=== PATIENT | male | born 1955 | race Caucasian/White ===

== ENCOUNTER → 2017-07-19 10:30 | Outpatient (CLI) | payer OTHER, SELFPAY ==
--- NOTE | 2017-07-19 13:23 | STRESSREP ---
Stress Test Report Date: 07/19/2017 Procedure: Exercise tolerance test Indications: Aortic valve disorder/stenosis Consent: Per the patient Procedure: The patient exercised on a Virgilio protocol for 4 minutes completing stage I and I minute of stage II achieving a peak heart rate of 118 bpm (73% predicted maximal heart rate) with a peak blood pressure of 120/90 mmHg and a peak MET capacity of approximately 5-6 MET's. The baseline ECG demonstrated underlying normal sinus rhythm. The peak exercise ECG demonstrated no obvious ECG changes. The recovery ECG demonstrated approximately 1-2 mm of downsloping/horizontal ST segment depression in leads I, II, aVL, and V2 through V6 with gradual resolution towards baseline in recovery. There was a rare PVC during exercise recovery. The functional capacity was considered decreased. The patient noted no chest discomfort at peak exercise. The examination was discontinued secondary to dyspnea. Interpretation: 1. Technically inadequate (percent predicted maximal heart rate less than 85%) exercise tolerance test 2. Peak exercise ECG demonstrating no obvious ECG changes, however, the recovery ECG demonstrated approximately 1-2 mm of downsloping/horizontal ST segment depression in leads I, II, aVL, and V2 through V6 with gradual resolution towards baseline in recovery 3. Rare PVC during exercise and recovery This note was generated with [employer] software. Every effort was made to ensure accuracy, however, computerized stone hand mistakes may persist.
--- NOTE | 2017-07-19 13:28 | STRESSREP_ITS ---
Stress Test Report Date: 07/19/2017 Procedure: Exercise tolerance test Indications: Aortic valve disorder/stenosis Consent: Per the patient Procedure: The patient exercised on a Virgilio protocol for 4 minutes completing stage I and I minute of stage II achieving a peak heart rate of 118 bpm (73% predicted maximal heart rate) with a peak blood pressure of 120/90 mmHg and a peak MET capacity of approximately 5-6 MET's. The baseline ECG demonstrated underlying normal sinus rhythm. The peak exercise ECG demonstrated no obvious ECG changes. The recovery ECG demonstrated approximately 1-2 mm of downsloping/horizontal ST segment depression in leads I, II, aVL, and V2 through V6 with gradual resolution towards baseline in recovery. There was a rare PVC during exercise recovery. The functional capacity was considered decreased. The patient noted no chest discomfort at peak exercise. The examination was discontinued secondary to dyspnea. Interpretation: 1. Technically inadequate (percent predicted maximal heart rate less than 85%) exercise tolerance test 2. Peak exercise ECG demonstrating no obvious ECG changes, however, the recovery ECG demonstrated approximately 1-2 mm of downsloping/horizontal ST segment depression in leads I, II, aVL, and V2 through V6 with gradual resolution towards baseline in recovery 3. Rare PVC during exercise and recovery This note was generated with [email or web address] software. Every effort was made to ensure accuracy, however, computerized tipple oiler mistakes may persist.
== END ==
PROVIDERS: Family Provider Family Medicine; PCP Family Medicine; Visit Provider Internal Medicine Cardiovascular Disease
DX: I35.0 Nonrheumatic aortic (valve) stenosis (principal)
CPT/HCPCS: 93017

== ENCOUNTER → 2017-08-02 07:28 | Day surgery (SDC) | payer OTHER, SELFPAY ==
--- NOTE | 2017-07-26 09:55 | RAD_ITS ---
STUDY: X-RAY CHEST REASON FOR EXAM: Male, 62 years old. Precath TECHNIQUE: Frontal and lateral views of the chest. COMPARISON: None. FINDINGS: The lungs are clear and expanded. There is no demonstrated pleural abnormality. Normal size heart. Normal mediastinum and misha. Normal visualized pulmonary arteries. Normal visualized aortic arch and descending thoracic aorta. Normal visualized thoracic spine. Normal visualized ribs, clavicles, and shoulders. There is no demonstrated abnormality of the visualized soft tissue structures of the upper abdomen. RAD/Chest PA and Lateral IMPRESSION: Normal x-ray examination of the chest. Electronically Signed: Gabriel Ndiaye MD at 17:22 EST , Service support ,
[2017-07-26 10:18] LABS: Hematocrit 40.6 % (40-54); Hemoglobin 14.6 g/dl (13.0-16.5); International Normalized Ratio 1.1; Mean Corpuscular Hgb 31.9 pg (27.0-32.0); Mean Corpuscular Volume 88.8 fL (80-94); Mean Platelet Vol. 10.1 fl (6.2-12.0); Platelet Count 230 K/mm3 (150-450); Prothrombin Time (Protime)PT. 13.3 SECONDS (11.7-14.9); RBC Distribution Width CV 13.6 % (11.6-14.6); RBC Distribution Width SD 42.9 fl (35.1-43.9); Red Blood Count 4.57 M/mm3 (4.6-6.2); White Blood Count 10.9 K/mm3 (4.4-11.0)
[2017-07-26 10:19] LABS: Partial Thromboplast Time 29.8 Seconds (24.1-36.2)
[2017-07-26 10:20] LABS: Scan Indicated on CBC? Y/N NO
[2017-07-26 10:37] LABS: Anion Gap 5 (5-15); BUN 19 mg/dL (7-18); BUN/Creat Ratio 11.7 RATIO (10-20); Calcium,Total 9.8 mg/dL (8.5-10.1); Chloride 98 mmol/L (98-107); Creatinine, Serum 1.62 mg/dL (0.70-1.30); EST Glomerular Filtration Rate 46 mL/min (>60); Est Glom Filt Rate - Afr Amer 56 mL/min (>60); Glucose 243 mg/dL (74-106); Potassium 3.6 mmol/L (3.5-5.1); Sodium Level 136 mmol/L (136-145)
[2017-08-01 12:04] VITALS: BMI 34.0
[2017-08-02 11:41] LABS: Blood Gas Specimen Type VEN; VBG BASE EXCESS 3 mmol/L (-1.0-3.5); VBG Bicarbonate 27 mmol/L (22-26); VBG Oxygen Content 28 mmol/L (23-33); VBG PO2 42 mmHg (25-40); VBG SO2 79 % (50-70); VBG pCO2 39.5 mmHg (41-51); VBG pH 7.44 (7.32-7.42)
[2017-08-02 11:41] LABS: Blood Gas Specimen Type VEN; VBG BASE EXCESS 1 mmol/L (-1.0-3.5); VBG Bicarbonate 26 mmol/L (22-26); VBG Oxygen Content 27 mmol/L (23-33); VBG PO2 37 mmHg (25-40); VBG SO2 73 % (50-70); VBG pCO2 38.6 mmHg (41-51); VBG pH 7.43 (7.32-7.42)
[2017-08-02 11:41] LABS: Blood Gas Specimen Type VEN; VBG BASE EXCESS 2 mmol/L (-1.0-3.5); VBG Bicarbonate 26 mmol/L (22-26); VBG Oxygen Content 27 mmol/L (23-33); VBG PO2 36 mmHg (25-40); VBG SO2 70 % (50-70); VBG pCO2 40.4 mmHg (41-51); VBG pH 7.42 (7.32-7.42)
--- NOTE | 2017-08-02 21:01 | CL.D_ITS ---
Patient Name: CATALINA TAO Study Date: 08/02/2017 Performing: Brad Chávez MD Ht: 69 inches 175 cm : 1955 Wt: 229.6 lbs 104 kg Age: 62 Gender: male BSA: 2.19 PROCEDURE(S) PERFORMED [id number]/LHC/COR/LV CLINICAL PROFILE AND INDICATIONS INDICATIONS: Valvular heart disease, Aortic valve stenosis, Abnormal cardiac stress test Stress/Imaging Standard Exercise Stress Test: Yes Result: Positive Angina Classification Anginal Classification w/in 2 Weeks: No symptoms CAD Presentations: No Sxs, no angina. CONCLUSIONS Elevated Left Ventricular End Diastolic Pressure Right heart pressures - mildly elevated The patient has pulmonary hypertension which is mild. Intracardiac shunting: None Normal LV size, wall motion,and systolic function LVEF: by LV gram 65 % Single vessel CAD of the proximal LAD (smooth 10-25% stenosis) Aortic Valve Stenosis - Severe Aortic Root dilated RECOMMENDATIONS Risk factor modification Medical therapy Chest CT scan: to further evaluate the thoracic aorta Surgery consult for valvular disease DESCRIPTION OF PROCEDURE The patient arrived to the procedure lab. The risks and benefits of the procedure as well as a full d escription of our services here and current unavailability of surgical backup were fully explained to the patient and/or their significant other prior to the catheterization. The Timeout was completed, verifying the correct patient and procedure. The patient's procedural site was prepped and draped in the usual fashion. Local anesthetic was given subcutaneously to right groin region with Lidocaine 2%. Using a modified Seldinger technique, arterial access was obtained via the right femoral artery, a 4 Fr sheath was inserted Venous access was obtained via the right femoral vein, a 7Fr sheath was insert ed. A 7Fr thermal dilution catheter was inserted and right heart pressures were recorded, it was then advanced to PA position for cardiac outputs. Thermal dilution cardiac outputs were then recorded. O2 saturations were then obtained. Simultaneous pressures were then recorded. Left Ventriculography was performed in [place] projection using a 4 Fr. Pigtail catheter. The Thermal dilution catheter was then r emoved. Left Coronary Artery selective angiography was performed in multiple views using a 4 Fr. JL5 catheter. Right Coronary Artery selective angiography was then performed in multiple views using a 4 Fr. 3DRC catheter.The arterial sheath was pulled and manual compression applied until hemostasis is a chieved.. The venous sheath was then pulled and manual compression applied until hemostasis achieved CORONARY ANGIOGRAPHY LEFT HEART ASSESSMENT Left Ventricular Ejection Fraction: by LV Gram 65 % Normal LV wall motion Elevated Left Ventricular End Diastolic Pressure LVEDP: 24 mmHg RIGHT HEART ASSESSMENT Thermal CO: 4.7 Thermal CI: 2.15 Yoandy CO: 7.72 Yoandy CI: 3.53 PW: 17/11 8 PA: 33/12 21 RV: 33/5 11 RA: 3/2 1 PVR: 221 SVR: 1515 Aortic Valve Area: 0.84 Aortic Valve Index: 0.38 Aortic Valve Mean Gradient: 40.2 Mitral Valve Area: >3.50 Mitral Valve index: 1.6 Mitral Valve Mean Gradient: 9.4 Right Heart pressures - elevated (RVSP: mildly elevated) Pulmonary Hypertension (PASP: mildly elevated) Intracardiac shunting: None LEFT MAIN: Angiographically normal LEFT ANTERIOR DECENDING ARTERY: PROX LAD: Smooth: 10-25 % Stenosis CIRCUMFLEX ARTERY: Angiographically normal RAMUS: Angiographically normal RIGHT CORONARY ARTERY: Angiographically normal VALVE FINDINGS: Aortic Valve Stenosis - severe Normal Mitral Valve function AORTIC ROOT: Dilated COMPLICATIONS No Complications PROCEDURE MEDICATIONS Versed 1 mg IV SUMMARY OF HEMODYNAMIC DATA Time AIR REST ECG 07:51:10 RA 3/2 (1) SV 08:46:55 RV 33/5, 11 08:48:50 PW 29/04 (8) PV 08:49:12 PA 33/12 (21) PA 08:49:31 AO 108/72 (90) SA 08:58:08 LV 188/4, 24 09:00:29 PW 22/23 (16) 09:00:29 LV 171/3, 34 09:03:06 PW / (16) 09:03:06 LVp 172/6, 25 09:03:34 LVp 166/3, 34 09:03:56 AOp 112/70 (89) 09:04:02 PA 33/14 (22) 09:05:48 RV 34/3, 11 09:06:06 RA 12/ (7) 09:06:25 Valve Area (c P-P/ms Time AIR REST Mitral 3.50 9.4 mn/157 ms 09:00:29 Aortic 0.84 40.2 mn/308 ms 54.0 pk/308 ms 09:03:56 Type SV CO (l/m) CI (l/m/ HR Time AIR REST Thermal 67.10 4.70 2.15 70 07:51:10 Yoandy 110.30 7.72 3.53 70 07:51:10 Label % O2 Pres/Loc Time AIR REST IVC 79 SV 08:57:21 SVC 70 08:57:25 PA 73 PA 08:57:31 AO 98 PV 08:57:35 Signed By Brad Chávez MD On 08/02/2017 21:01:05 Brad Chávez MD
== END ==
PROVIDERS: Family Provider Family Medicine; PCP Family Medicine; Visit Provider Internal Medicine Cardiovascular Disease
DX: I35.0 Nonrheumatic aortic (valve) stenosis (principal); R01.1 Cardiac murmur, unspecified; R94.39 Abnormal result of other cardiovascular function study; I10 Essential (primary) hypertension; E78.5 Hyperlipidemia, unspecified; E11.9 Type 2 diabetes mellitus without complications; Z79.82 Long term (current) use of aspirin; Z79.84 Long term (current) use of oral hypoglycemic drugs; Z79.899 Other long term (current) drug therapy
CPT/HCPCS: 36415; 71046; 80048; 82803; 85027; 85610; 85730; 93460; 99152; 99153; J7040; C1751; C1769; C1894; Q9967

== ENCOUNTER → 2017-08-04 14:24 | Outpatient (CLI) | payer OTHER, SELFPAY ==
[2017-08-04 15:28] LABS: Anion Gap 8 (5-15); BUN 18 mg/dL (7-18); BUN/Creat Ratio 10.2 RATIO (10-20); Calcium,Total 9.2 mg/dL (8.5-10.1); Chloride 96 mmol/L (98-107); Creatinine, Serum 1.77 mg/dL (0.70-1.30); EST Glomerular Filtration Rate 42 mL/min (>60); Est Glom Filt Rate - Afr Amer 51 mL/min (>60); Glucose 230 mg/dL (74-106); Potassium 2.9 mmol/L (3.5-5.1); Sodium Level 134 mmol/L (136-145)
== END ==
PROVIDERS: Family Provider Family Medicine; PCP Family Medicine; Visit Provider Internal Medicine Cardiovascular Disease
DX: I35.0 Nonrheumatic aortic (valve) stenosis (principal); I10 Essential (primary) hypertension; R01.1 Cardiac murmur, unspecified
CPT/HCPCS: 36415; 80048

== ENCOUNTER → 2017-08-08 15:51 | Outpatient (CLI) | payer OTHER, SELFPAY ==
--- NOTE | 2017-08-08 15:54 | CT_ITS ---
STUDY: CT CHEST WITHOUT CONTRAST REASON FOR EXAM: Male, 62 years old. Follow-up exam for thoracic aortic aneurysm. RADIATION DOSAGE (If Supplied By Facility): CTDIvol = ( 18.96 ) mGy, DLP = ( 710.82 ) mGycm TECHNIQUE: Transaxial imaging was performed without the administration of intravenous contrast material. Individualized dose optimization techniques were used for this CT. COMPARISON: Prior comparison studies are not available for review at this time. FINDINGS: There is a 6 mm noncalcified nodule in the right upper lobe seen on image 39 series 4. There is an adjacent 7 mm noncalcified nodule in the right upper lobe seen on image 41. No focal infiltrate is seen. There is no demonstrated pleural abnormality. Normal heart and pericardium. There are multiple prominent mediastinal nodes in the aortopulmonic window and anterior mediastinum. There is no definite hilar adenopathy on this noncontrast examination. Normal unenhanced pulmonary arteries. There is aneurysmal dilatation of the ascending thoracic aorta measuring about 5 cm in AP diameter. The aortic arch also is somewhat ectatic. There is tortuosity of the thoracic aorta. Bony structures are essentially unremarkable. The visualized portions of the upper abdomen demonstrate splenomegaly. CT/Chest without Contrast IMPRESSION: Aneurysmal dilatation of the ascending thoracic aorta measuring about 5 cm in AP diameter. Two noncalcified nodules in the right upper lobe measuring about 6 and 7 mm. Splenomegaly. Electronically Signed: Parth Mayes MD at 3:18 EST Tel , Service support ,
[2017-08-08 17:06] LABS: Anion Gap 9 (5-15); BUN 21 mg/dL (7-18); BUN/Creat Ratio 11.5 RATIO (10-20); Calcium,Total 8.8 mg/dL (8.5-10.1); Chloride 95 mmol/L (98-107); Creatinine, Serum 1.82 mg/dL (0.70-1.30); EST Glomerular Filtration Rate 41 mL/min (>60); Est Glom Filt Rate - Afr Amer 49 mL/min (>60); Glucose 318 mg/dL (74-106); Potassium 3.1 mmol/L (3.5-5.1); Sodium Level 132 mmol/L (136-145)
== END ==
PROVIDERS: Family Provider Family Medicine; PCP Family Medicine; Visit Provider Internal Medicine Cardiovascular Disease
DX: E87.6 Hypokalemia (principal); I10 Essential (primary) hypertension; I35.0 Nonrheumatic aortic (valve) stenosis; R01.1 Cardiac murmur, unspecified
CPT/HCPCS: 36415; 71250; 80048

== ENCOUNTER → 2017-09-12 17:10 | Outpatient (CLI) | payer OTHER, SELFPAY ==
[2017-09-12 19:10] LABS: Anion Gap 5 (5-15); BUN 15 mg/dL (7-18); Calcium,Total 9.7 mg/dL (8.5-10.1); Chloride 102 mmol/L (98-107); Creatinine, Serum 1.36 mg/dL (0.70-1.30); EST Glomerular Filtration Rate 57 mL/min (>60); Est Glom Filt Rate - Afr Amer 69 mL/min (>60); Glucose 171 mg/dL (74-106); Potassium 4.5 mmol/L (3.5-5.1); Sodium Level 138 mmol/L (136-145)
== END ==
PROVIDERS: Family Provider Family Medicine; PCP Family Medicine; Visit Provider Internal Medicine Cardiovascular Disease
DX: E87.6 Hypokalemia (principal); E87.1 Hypo-osmolality and hyponatremia
CPT/HCPCS: 80048

== ENCOUNTER → 2017-11-14 16:24 | Outpatient (CLI) | payer OTHER, SELFPAY ==
--- NOTE | 2017-11-14 16:24 | DT_ITS ---
This patient was seen during an EMR downtime November 14, 2017 - November 21, 2017. This patient may have a combination of paper and electronic documentation or all paper documentation. All documentation is viewable within the e-chart portion of [employer] for each patient visit.
[2017-11-20 03:31] LABS: Differential Indicated SCAN CRITERIA MET; Hematocrit 31.9 % (40-54); Hemoglobin 10.7 g/dl (13.0-16.5); Mean Corp Hgb Conc 33.5 g/gl (32-36); Mean Corpuscular Hgb 29.2 pg (27.0-32.0); Mean Corpuscular Volume 87.2 fL (80-94); Mean Platelet Vol. 9.8 fl (6.2-12.0); POSITIVE COUNT NO; POSITIVE DIFFERENTIAL NO; POSITIVE MORPHOLOGY YES; Platelet Count 496 K/mm3 (150-450); RBC Distribution Width CV 12.1 % (11.6-14.6); Red Blood Count 3.66 M/mm3 (4.6-6.2)
[2017-11-20 03:32] LABS: Absolute Lymphocyte Count 1.59 X10^3/ul (0.83-4.51); Absolute Neutrophil Count 12.7 X10^3/uL (2.0-7.7); Basophil# 0.05 X10^3/uL; Basophil% 0.3 % (0-1); Differential Comment SCANNED; Eosinophil# 0.27 X10^3/uL; Eosinophils% 1.7 % (0-5); Lymphocyte # 1.59 X10^3/ul (4.0); Lymphocyte % 9.9 % (19-41); Monocyte# 1.28 X10^3/uL; Neutrophil # 12.72 X10^3/uL (2.7-7.7); Neutrophil % 79.7 % (47-70)
[2017-11-20 04:00] LABS: BUN 20 mg/dL (7-18); Glucose 196 mg/dL (74-106)
[2017-11-20 04:01] LABS: Anion Gap 10 (5-15); BUN/Creat Ratio 14.8 RATIO (10-20); Calcium,Total 10.2 mg/dL (8.5-10.1); Chloride 98 mmol/L (98-107); Creatinine, Serum 1.35 mg/dL (0.70-1.30); EST Glomerular Filtration Rate 57 mL/min (>60); Est Glom Filt Rate - Afr Amer 69 mL/min (>60); Potassium 3.8 mmol/L (3.5-5.1); Sodium Level 135 mmol/L (136-145)
== END ==
PROVIDERS: Family Provider Family Medicine; PCP Family Medicine; Visit Provider Family Medicine
DX: I71.2 Thoracic aortic aneurysm, without rupture (principal)
CPT/HCPCS: 36415; 80048; 85025

== ENCOUNTER → 2018-11-27 | Outpatient (CLI) | payer OTHER, SELFPAY ==
[2017-12-22 14:42] VITALS: BMI 32.8
[2018-11-27 17:56] LABS: Hemoglobin A1c 5.7 % (4.2-6.3)
[2018-11-27 18:12] LABS: AST(SGOT) 20 U/L (15-37); Alanine Aminotransfer ALT/SGPT 24 U/L (16-61); Alkaline Phosphatase 115 U/L (45-117); Anion Gap 7 (5-15); BUN 16 mg/dL (7-18); BUN/Creat Ratio 12.7 RATIO (10-20); Bilirubin, Direct 0.23 mg/dL (0.00-0.30); Calcium,Total 9.8 mg/dL (8.5-10.1); Chloride 104 mmol/L (98-107); Cholesterol 156 mg/dL (200); Creatinine, Serum 1.26 mg/dL (0.70-1.30); EST Glomerular Filtration Rate 62 mL/min (>60); Est Glom Filt Rate - Afr Amer 75 mL/min (>60); Globulin 3.2 g/dL (2.2-4.2); Glucose 102 mg/dL (74-106); High Density Lipoprotein 33 mg/dL; Potassium 4.1 mmol/L (3.5-5.1); Protein, Total 7.2 g/dL (6.4-8.2); Sodium Level 138 mmol/L (136-145); Triglycerides 212 mg/dL; Very Low Density Lipoprotein 42 mg/dL (5-40)
[2018-11-27 18:22] LABS: Microalbumin:Creatinine Ratio 13.2 mg/g CRE (<30 mg/g CRE)
== END | disposition home or self-care (01) ==
LOC: MFPLAB 15:41
PROVIDERS: Family Provider Family Medicine; PCP Family Medicine; Referring Provider Family Medicine; Visit Provider Family Medicine
DX: E11.9 Type 2 diabetes mellitus without complications (principal); I10 Essential (primary) hypertension
CPT/HCPCS: 36415; 80048; 80061; 80076; 82043; 82570; 83036

== ENCOUNTER → 2018-12-07 | Outpatient (CLI) | payer OTHER, SELFPAY ==
--- NOTE | 2018-12-07 07:18 | CT_ITS ---
STUDY: CT CHEST WITH CONTRAST REASON FOR EXAM: Male, 63 years old. RADIATION DOSAGE (If Supplied By Facility): CTDIvol = ( 16.90 ) mGy, DLP = ( 669.86 ) mGycm TECHNIQUE: Transaxial imaging was performed following intravenous administration of 100mL IV Isovue 300. Individualized dose optimization techniques were used for this CT. COMPARISON: August 08/2018. FINDINGS: Both lung grullon and costophrenic angles are clear no evidence of consolidation or atelectasis. No pleural effusion or pneumothorax. The previously described tiny nodule in the right upper lobe is no longer seen in today's examination. The previously described at the mediastinal lymph nodes are much smaller in size than in the previous examination. There is aortic valve replacement but no aneurysmal dilatation is now detected in the ascending aorta where the diameter measures 3.3 cm. The visualized bony structures are intact. CT/Chest WITH Contrast IMPRESSION: Resolution of the nodule seen in the right upper lobe. Significant reduction in the size of the mediastinum and lymph nodes. No aneurysmal dilatation of the ascending aorta in this study. Aortic valve replacement Electronically Signed: Curtis Pulliam, at 11:57 EDT Tel , Service support ,
== END | disposition home or self-care (01) ==
PROVIDERS: Family Provider Family Medicine; PCP Family Medicine; Referring Provider Family Medicine; Visit Provider Family Medicine
DX: R91.1 Solitary pulmonary nodule (principal)
CPT/HCPCS: 71260; Q9967

== ENCOUNTER → 2019-01-08 | Outpatient (CLI) | payer OTHER, SELFPAY ==
[2018-12-22 10:28] VITALS: BMI 32.9
[2019-01-08 14:15] LABS: Anion Gap 10 (5-15); BUN 18 mg/dL (7-18); BUN/Creat Ratio 11.8 RATIO (10-20); Calcium,Total 10.6 mg/dL (8.5-10.1); Chloride 103 mmol/L (98-107); Creatinine, Serum 1.52 mg/dL (0.70-1.30); EST Glomerular Filtration Rate 50 mL/min (>60); Est Glom Filt Rate - Afr Amer 60 mL/min (>60); Glucose 158 mg/dL (74-106); Potassium 3.7 mmol/L (3.5-5.1); Sodium Level 142 mmol/L (136-145)
== END | disposition home or self-care (01) ==
LOC: LAB 12:52
PROVIDERS: Family Provider Family Medicine; PCP Family Medicine; Referring Provider Internal Medicine Cardiovascular Disease; Visit Provider Internal Medicine Cardiovascular Disease
DX: I10 Essential (primary) hypertension (principal)
CPT/HCPCS: 36415; 80048

== ENCOUNTER → 2019-01-10 | Outpatient (CLI) | payer OTHER, SELFPAY ==
[2018-12-22 10:28] VITALS: BMI 32.9
--- NOTE | 2019-01-10 14:44 | ECHOCS_ITS ---
Reason For Study: Murmur Procedure This was a 2D Doppler, Color Flow transthoracic echocardiogram. The study was technically difficult. Contrast injection was performed. Exam performed in department. Left Ventricle Normal LV size. Moderate to severe concentricl left ventricular hypertrophy. Left ventricular systolic function is normal. The estimated ejection fraction is 70 %. Post operative septal motion. Diastolic function is indeterminate. No regional wall motion abnormalities noted. Right Ventricle Normal RV size. Normal systolic function. Atria Normal left atrium. Normal right atrium. Small secundum atrial septal defect vs. patent foramen ovale. Mitral Valve There is mild mitral annular calcification. Extension of the mitral annular calcification onto the posterior mitral valve leaflet. Trivial mitral valve insufficiency. Tricuspid Valve Normal tricuspid valve. Trivial tricuspid valve insufficiency. Unable to estimate RV systolic pressure/pulmonary artery pressure due to technically difficult study. Aortic Valve Stable appearing bioprosthetic aortic valve apparatus. Pulmonic Valve The pulmonic valve is not well visualized. Trivial pulmonic valve insufficiency. Great Vessels The aortic root is not well visualized. Pericardium/Pleural No pericardial effusion. Medication 22 gauge I.V. with prn adaptor inserted into right arm. Diluted definity 2.5ml given slow IV push to enhance endocardial definition. MMode/2D Measurements & Calculations LVIDd: 4.2 cm IVSd: 1.9 cm LVOT diam: 2.0 cm LVIDs: 2.7 cm LVPWd: 1.4 cm FS: 36.3 % LVOT area: 3.0 cm2 LAV(MOD-sp4): 41.6 ml LA A4 area: 16.5 cm2 RA A4 area: 11.4 cm2 Time Measurements MV dec time: 0.42 sec Doppler Measurements & Calculations MV E max ajit: 71.5 cm/sec Lat Peak E' Ajit: 11.7 cm/sec Med Peak E' Ajit: 4.1 cm/sec MV A max ajit: 99.7 cm/sec E/E' lat: 6.1 E/E' med: 17.6 MV E/A: 0.72 MV V2 max: 109.8 cm/sec MV P1/2t max ajit: 74.2 cm/sec Ao V2 max: 255.2 cm/sec MV max P.8 mmHg MV P1/2t: 137.3 msec Ao max P.1 mmHg MV V2 mean: 56.6 cm/sec MV dec slope: 158.2 cm/sec2 Ao V2 mean: 153.9 cm/sec MV mean P.5 mmHg Ao mean P.8 mmHg MV V2 VTI: 29.7 cm MVA(P1/2t): 1.6 cm2 Ao V2 VTI: 43.8 cm MVA(VTI): 2.1 cm2 LEXX(I,D): 1.4 cm2 LEXX(V,D): 1.2 cm2 LV V1 max: 105.0 cm/sec SV(LVOT): 62.1 ml PA V2 max: 95.3 cm/sec LV V1 max P.4 mmHg LV V1 mean P.8 mmHg LV V1 mean: 60.1 cm/sec LV V1 VTI: 20.5 cm Interpretation Summary The study was technically difficult. Contrast injection was performed. Left ventricular systolic function is normal. The estimated ejection fraction is 70 %. Post operative septal motion. Moderate to severe concentricl left ventricular hypertrophy. There is mild mitral annular calcification. Extension of the mitral annular calcification onto the posterior mitral valve leaflet. Trivial mitral valve insufficiency. Trivial tricuspid valve insufficiency. Stable appearing bioprosthetic aortic valve apparatus. Trivial pulmonic valve insufficiency. Unable to estimate RV systolic pressure/pulmonary artery pressure due to technically difficult study. Diastolic function is indeterminate. Ordering Physician: Brad Chávez Referring Physician: Mitali Simmons M.D. Performed By: Ajit York RCS
== END | disposition home or self-care (01) ==
LOC: CVS 14:42
PROVIDERS: Family Provider Family Medicine; PCP Family Medicine; Referring Provider Internal Medicine Cardiovascular Disease; Visit Provider Internal Medicine Cardiovascular Disease
DX: R01.1 Cardiac murmur, unspecified (principal); I10 Essential (primary) hypertension; E78.5 Hyperlipidemia, unspecified; Z95.3 Presence of xenogenic heart valve; Z95.828 Presence of other vascular implants and grafts
CPT/HCPCS: 93306; Q9957; A4216; C8929

== ENCOUNTER 2019-03-07 22:15 | Emergency (ER) | payer OTHER, SELFPAY ==
[2018-12-22 10:28] VITALS: BMI 32.9
[2019-03-07 22:17] VITALS: BP 171/99; PULSE 72; RESP 16; TEMP 36.6; O2SAT 97; BMI 32.3
--- NOTE | 2019-03-07 22:45 | CT_ITS ---
STUDY: CT ABDOMEN AND PELVIS WITHOUT CONTRAST REASON FOR EXAM: Male, 64 years old. Left-sided back pain. TECHNIQUE: Transaxial images were obtained from the dome of the diaphragm to the symphysis pubis without oral contrast, and without intravenous contrast. Sagittal and coronal images were reconstructed. Individualized dose optimization techniques were used for this CT. COMPARISON: No relevant priors. FINDINGS: Partially visualized lower chest: [Lung bases unremarkable.] Liver: [No concerning lesions.] Gallbladder and biliary tree: Status post cholecystectomy. No biliary ductal dilation. Pancreas: No pancreatic lesions or inflammation. Spleen: Normal size, no splenic lesions. Adrenal glands: No concerning masses. Kidneys and ureters: 6 mm in length, 4 mm in diameter proximal left ureteral stone with mild hydronephrosis and perinephric stranding. Residual 4 mm stone posterior calyx lower pole left kidney. Residual punctate stone anterior calyx upper pole left kidney. Approximate 5 nonobstructing stones right kidney, largest 9 mm in an anterior, mid pole calyx. No right ureteral stones or right hydronephrosis. Bowel: [Noninflamed appendix.] No obstruction or inflammation of the bowel. Colonic anastomosis in the lower abdomen. Urinary bladder: No stones. Mild wall thickening. Reproductive: Mild prostate enlargement, 5.9 cm transverse dimension. Vascular: No abdominal aortic aneurysm. Mild atherosclerosis. Retroperitoneal and peritoneal spaces: No ascites or free air. No retroperitoneal lesions. Osseous: No acute osseous abnormality. Degenerative changes lumbar spine. Sternotomy wires partially visible. Abdominal and pelvic wall: No concerning findings. CT/Abdomen/Pelvis without Cont IMPRESSION: 6 x 4 mm proximal left ureteral stone with mild obstruction. Residual bilateral renal stones. Mild prostate enlargement. Mild urinary bladder wall thickening may be due to chronic outlet obstruction. Electronically Signed: Andriy Scott, at 0:03 EDT Tel , Service support ,
--- NOTE | 2019-03-07 22:46 | ED.DCSUM_ITS ---
History of Present Illness Chief Complaint: Back Informant: Patient Narrative: Presents with left lower back pain. He stated it started earlier this afternoon. It has been a constant deep aching pain that waxes and wanes. Associated with intermittent nausea. History of kidney stones x3 in the past. Feels similar to kidney stones. He has passed them all in the past. Current severity is mild to moderate. Took a Tylenol earlier this afternoon. No blood in his urine. No urinary symptoms. No history of AAA per patient. Movement related. No injury to his back that he can think of. - Past Medical History (1) Abnormal stress test Status: Acute (2) Cardiac murmur Status: Acute (3) Hyperlipidemia Status: Acute (4) Hypokalemia Status: Acute (5) Hyponatremia Status: Acute (6) Nonrheumatic aortic (valve) stenosis Status: Acute (7) Thoracic ascending aortic aneurysm Status: Acute (8) Type 2 diabetes mellitus Status: Acute (9) Essential hypertension Status: Chronic (10) S/P aortic valve replacement with tissue Status: Resolved Comment: #25 Vilchis Rahman Onsted Valve 11/01/17 (11) S/P ascending aortic replacement Status: Resolved Comment: #30mm Gelweave graft 11/01/17 Past Medical History - Allergies and Home Meds Allergies/Adverse Reactions: Allergies chocolate flavor Adverse Reaction (Unknown, Verified 03/07/19 22:17) Unknown beans/legumes Adverse Reaction (Unknown, Uncoded 03/07/19 22:17) Unknown dairy products Adverse Reaction (Unknown, Uncoded 03/07/19 22:17) Unknown eggs Adverse Reaction (Unknown, Uncoded 03/07/19 22:17) Unknown Nuts Adverse Reaction (Unknown, Uncoded 03/07/19 22:17) Unknown Primary Care Physician: Mitali Simmons MD [Primary Care Provider] - Blake Orellana MD [STAFF PHYSICIAN] - Prior records reviewed: Yes Past Medical History: - - See problem list Surgical History: - - Reviewed Lives: With Family Smoking Status: Never smoker Alcohol: None Drugs: None Review of Systems General: Denies: Chills, Fever, Sweats Eyes: Denies: Visual changes - bilaterally, Diplopia ENT: Denies: Rhinorrhea, Sore throat Cardiovascular: Denies: Chest pain, Palpitations Respiratory: Denies: Dyspnea, Cough, Dyspnea on exertion Gastrointestinal: Reports: Nausea. Denies: Abdominal pain, Vomiting, Diarrhea, Melena, Hematochezia Genitourinary: Denies: Dysuria, Hematuria, Frequency Musculoskeletal: Reports: Back pain. Denies: Extremity Pain Skin: Denies: Rash, Wounds Neurological: Denies: Headache, Weakness, Numbness Physical Exam Vital Signs/Narrative: Vital Signs Temp Pulse Resp BP Pulse Ox 03/07/19 22:17 97.8 F 72 16 171/99 H 97 General: Well nourished, Well developed, No Acute Distress Head: Normocephalic, Atraumatic Eyes: Perrl, EOMI ENT: Moist mucous membranes, No rhinorrhea Neck: Supple, Nontender Cardiovascular: Regular rate, Regular rhythm, No murmurs Respiratory: No distress, CTA bilaterally, Chest nontender Abdomen: Soft, Nontender, Nondistended, Normal bowel sounds Back: Nontender, Normal Inspection Extremities: Nontender, No edema Skin: Normal color, No rash Neurological: Alert, Oriented x3, Cranial nerves II-XII grossly intact, Normal Strength, Normal Sensation Psychological: Normal affect, Normal Mood Diagnostic/Tx/Re-eval - Medical Decision Making The established and given morphine Zofran IV fluids. Lab work CT abdomen pelvis obtained. CT shows a 6 x 4 mm kidney stone in the left proximal ureter with mild hydro-. Small stones in the left and large stone in the right kidney as well. Patient felt much better after treatment. Will be given Zofran and Percocet for home. Will be given Flomax as well. Lab work shows a leukocytosis without evidence of urinary tract infection. I likely feel he has a left shift secondary to the pain he was experiencing. He does have chronic renal insuff iciency with mildly worsening creatinine. Patient given IV fluids here and will continue these at home. He will follow-up with urology. He will return if he worsens. He understands there is a small chance he will not pass the stone. ED Disposition - Plan for ED Patient: Disposition: Home or Assisted Living Diagnosis: Kidney stone on left side Instructions: Understanding Kidney Stones Prescriptions: Tamsulosin HCl [Flomax] 0.4 mg PO DAILY #7 cap Prescription Printed Oxycodone HCl/Acetaminophen [Percocet 5/325] 1 - 2 tab PO Q6H PRN PRN 3 Days #12 tab PRN Reason: Pain Prescription Printed Ondansetron [Zofran Odt] 4 mg PO Q8H PRN PRN #10 tab PRN Reason: Nausea Prescription Printed Referrals: Mitali Simmons MD [Primary Care Provider] - Blake Orellana MD [STAFF PHYSICIAN] -
[2019-03-07 22:59] LABS: Absolute Lymphocyte Count 1.11 X10^3/uL (0.83-4.51); Absolute Neutrophil Count 12.8 X10^3/uL (2.0-7.7); Basophil# 0.07 X10^3/uL; Basophil% 0.4 % (0-1); Eosinophil# 0.36 X10^3/uL; Eosinophils% 2.3 % (0-5); Hematocrit 43.4 % (40-54); Hemoglobin 15.2 g/dL (13.0-16.5); Lymphocyte # 1.11 X10^3/ul (4.0); Mean Corpuscular Hgb 31.2 pg (27.0-32.0); Mean Corpuscular Volume 89.1 fL (80-94); Mean Platelet Vol. 9.4 fl (6.2-12.0); Monocyte# 1.39 X10^3/uL; Monocyte% 8.8 % (0-10); NRBC Flagged by Analyzer 0 % (0-5); Neutrophil # 12.84 X10^3/uL (2.7-7.7); Neutrophil % 81.1 % (47-70); Platelet Count 191 K/mm3 (150-450); RBC Distribution Width CV 12.9 % (11.6-14.6); RBC Distribution Width SD 41.6 fl (35.1-43.9); Red Blood Count 4.87 M/mm3 (4.6-6.2); White Blood Count 15.8 K/mm3 (4.4-11.0)
[2019-03-07] MEDS: 0.9% Normal Saline 1,000 ML 150 ML IV (23:02)
[2019-03-07] MEDS: Ondansetron 4 MG/2 ML Vial IV (23:02)
[2019-03-07] MEDS: Morphine 4 MG/ML Syringe IV (23:02)
[2019-03-07 23:13] LABS: Anion Gap 7 (5-15); BUN 16 mg/dL (7-18); BUN/Creat Ratio 8.2 RATIO (10-20); Calcium,Total 10.1 mg/dL (8.5-10.1); Chloride 102 mmol/L (98-107); Creatinine, Serum 1.96 mg/dL (0.70-1.30); EST Glomerular Filtration Rate 37 mL/min (>60); Est Glom Filt Rate - Afr Amer 45 mL/min (>60); Estimated Creatinine Clearance 40.35 ml/min; Glucose 210 mg/dL (74-106); Potassium 3.8 mmol/L (3.5-5.1); Sodium Level 138 mmol/L (136-145)
[2019-03-07 23:14] LABS: Bacteria 0 SEEN /hpf (None Seen); Squamous Epithelial Cells - UA 0 SEEN /hpf (0-5)
[2019-03-07 23:16] LABS: Color, Urine Yellow (Yellow); Glucose, Dipstick Normal (Normal); Ketone-Dipstick Negative (Negative); Leukocyte Esterase-Dipstick 25 /ul (Negative); Nitrite-Dipstick Negative (Negative); Occult Blood-Urine 250 /ul (Negative); Protein-Dipstick 30 mg/dl (Negative); Urine Bilirubin Dipstick Negative (Negative); Urine Clarity Sl. Cloudy (Clear); Urine Urobilinogen Normal (Normal)
[2019-03-07 23:22] LABS: Red Blood Cells-Urine 50-100 SEEN /hpf (0-5); White Blood Cells 0-5 SEEN /hpf (0-5)
[2019-03-07 23:23] LABS: Calcium Oxalate Crystals Ur 1+ /hpf (<or=2+); Mucous, Urine 1+ /hpf (<or=2+)
[2019-03-08] MEDS: Morphine 4 MG/ML Syringe IV (00:20)
[2019-03-08 00:28] VITALS: BP 166/90; PULSE 65; RESP 14; O2SAT 100
== END 2019-03-08 00:29 | disposition home or self-care (01) ==
PROVIDERS: Emergency Provider Emergency Medicine; Family Provider Family Medicine; PCP Family Medicine
DX: N13.2 Hydronephrosis with renal and ureteral calculous obstruction (principal); E78.5 Hyperlipidemia, unspecified; E87.6 Hypokalemia; E11.9 Type 2 diabetes mellitus without complications; I10 Essential (primary) hypertension; Z95.3 Presence of xenogenic heart valve; Z79.899 Other long term (current) drug therapy
CPT/HCPCS: 74176; 80048; 81001; 85025; 96361; 96374; 96375; 96376; 99282; J7030; A4216; J2405

== ENCOUNTER → 2019-03-12 | Outpatient (CLI) | payer OTHER, SELFPAY ==
[2019-03-07 22:17] VITALS: BMI 32.3
--- NOTE | 2019-03-12 09:22 | RAD_ITS ---
STUDY: X-RAY - ABDOMEN/PELVIS REASON FOR EXAM: Male, 64 years old. Kidney stones TECHNIQUE: KUB COMPARISON: CT of the abdomen March 07, 2019 FINDINGS: Normal visualized lung bases. There is an unremarkable bowel gas pattern. There is no demonstrated free abdominal air. The visualized liver, and spleen are grossly normal in size and morphology. Small bilateral renal calculi are noted. There is also a calculus lateral to the left psoas consistent with mid ureteral calculus Normal soft tissue structures. Lumbar spine demonstrates mild degenerative change No significant change since prior RAD/Abdomen Single View IMPRESSION: Bilateral nephrolithiasis and small left mid ureteral calculus Electronically Signed: Almas Loomis MD at 20:56 EDT , Service support ,
== END | disposition home or self-care (01) ==
LOC: RAD 09:19
PROVIDERS: Family Provider Family Medicine; PCP Family Medicine; Referring Provider Urology; Visit Provider Urology
DX: N20.0 Calculus of kidney (principal)
CPT/HCPCS: 74018

== ENCOUNTER 2019-03-16 11:42 | Day surgery (SDC) | payer OTHER, SELFPAY ==
[2019-03-16 12:15] VITALS: BP 144/86; PULSE 76; RESP 16; TEMP 37; O2SAT 98; BMI 31.5
[2019-03-16] MEDS: Lactated Ringers 1,000 ML 100 ML IV ×2 (12:48→15:13)
[2019-03-16 13:01] LABS: Bedside Glucose 141 mg/dL (70-110)
[2019-03-16] MEDS: Cefazolin 2 GM in 0.9% Normal Saline 100 ML IV (13:25)
[2019-03-16] MEDS: Ketorolac 15 MG/ML Vial IV (14:56)
--- NOTE | 2019-03-16 14:56 | DCINST_ITS ---
Discharge Diet: Light diet - advance as tolerated Discharge Activity: Return to Normal Activity Suture Line Care: Avoid Pulling/Pushing, Avoid Pinching/Bending Allergies/Adverse Reactions: Allergies latex Allergy (Verified 03/15/19 07:56) Unknown chocolate flavor Adverse Reaction (Unknown, Verified 03/15/19 07:44) Unknown beans/legumes Adverse Reaction (Unknown, Uncoded 03/07/19 22:17) Unknown dairy products Adverse Reaction (Unknown, Uncoded 03/07/19 22:17) Unknown eggs Adverse Reaction (Unknown, Uncoded 03/07/19 22:17) Unknown Nuts Adverse Reaction (Unknown, Uncoded 03/07/19 22:17) Unknown Medications to take at Discharge aspirin 81 mg tablet,delayed release 81 mg PO QDAY 07/01/17 cetirizine 10 mg capsule 10 mg PO QDAY 07/01/17 metformin 500 mg tablet 1,000 mg PO QDAY tab 07/01/17 multivitamin tablet 1 tab PO QDAY 07/01/17 atorvastatin 10 mg tablet 10 mg PO DAILY #90 tab 12/22/18 furosemide 20 mg tablet 20 mg PO DAILY #90 tab 12/22/18 potassium chloride ER 20 mEq tablet,extended release 10 meq PO QDAY tab 12/22/18 Ondansetron [Zofran Odt] 4 mg PO Q8H PRN PRN #10 tab 03/08/19 Tamsulosin HCl [Flomax] 0.4 mg PO DAILY #7 cap 03/08/19 Metoprolol Tartrate [Lopressor (beta kit)] 25 mg PO BID 03/15/19 Oxycodone HCl/Acetaminophen [Oxycodone-Acetaminophen 5-325] 1 ea PO Q4H PRN PRN 03/15/19 Oxycodone HCl/Acetaminophen [Percocet 5/325] 1 tab PO Q4H PRN PRN 3 Days #10 tab 03/16/19 The following prescriptions were given: Oxycodone HCl/Acetaminophen [Percocet 5/325] 1 tab PO Q4H PRN PRN 3 Days #10 tab PRN Reason: Pain Prescription Printed Primary Care Physician: Mitali Simmons MD [Primary Care Provider] - Test Results: Test results from this visit will be discussed in further detail at your follow- up appointment, if applicable. Please Follow Up With: Blake Orellana MD When: call for appt next week.
--- NOTE | 2019-03-16 14:58 | PCM.OPRPT ---
Report of Operation Date of Procedure: 03/16/19 Pre-Operative Diagnosis: Left ureteral calculi and left renal calculi Post-Operative Diagnosis: Same Surgery/Procedure Performed:: Cystoscopy and left stent placement, left extracorporeal shockwave lithotripsy to the left renal stone and a left ureteral stone Description of Surgical Findings:: 64-year-old male taken back to the operating room at the smooth induction of general anesthesia he was placed supine on the table we found the stone in the mid left ureter and proceeded with shockwave lithotripsy. We gave a total of 1800 shockwaves to the stone the stone did not change at all therefore we decided to place a stent. Penis and testicles were prepped and draped in usual sterile fashion within the bladder with a 21 [place] rigid cystourethroscope entire length urethra is normal pendulous urethra is normal bulbar urethra is normal sphincter was intact verumontanum was normal prostate bilateral hypertrophy of median lobe and then identified the left ureter orifice cannulated the wire advanced a wire past the stone and the placed stent on the left side once a stent was in good position I drained the bladder and removed the scope left the stented and then would continue with shockwave lithotripsy. We gave a total of 4000 shockwaves to the stone in the left mid ureter with partial fragmentation want to see if the stone may need more treatment. We then went into the kidney and found the stone in the kidney and the liver 2000 shockwaves to the stone at a rate of 90 power up to 7. The stone in the kidney broke up very well. Patient anesthetic was reversed at this point we treated both the stones with shockwave lithotripsy the one stone broke up well the other one stop broke up partially stent was placed plan to see him next with a KUB and will remove the KUB if the stones are broken successfully but possibly may need a second treatment. Type of Anesthesia:: General - Admit VTE Documentation VTE Present on Admission: No VTE Mechan Device Prophylaxis: SCD's
[2019-03-16 15:04] VITALS: BP 133/90; BP 144/86; PULSE 57; RESP 16; TEMP 36.1; O2SAT 96
[2019-03-16 15:14] VITALS: BP 142/93; BP 144/86; PULSE 56; RESP 16; O2SAT 99
[2019-03-16 15:16] VITALS: BP 142/91; BP 144/86; PULSE 56; RESP 16; O2SAT 98
[2019-03-16 15:35] VITALS: BP 144/86; BP 147/97; PULSE 64; RESP 16; O2SAT 99
[2019-03-16 16:04] VITALS: BP 144/86
== END 2019-03-16 16:50 | disposition home or self-care (01) ==
LOC: SDC 11:43 → AC 11:44
PROVIDERS: Family Provider Family Medicine; PCP Family Medicine; Referring Provider Urology; Visit Provider Urology
PROC: (CPT 50590; principal; 2019-03-16 13:40)
DX: N20.2 Calculus of kidney with calculus of ureter (principal); I10 Essential (primary) hypertension; E11.9 Type 2 diabetes mellitus without complications; K21.9 Gastro-esophageal reflux disease without esophagitis; D64.9 Anemia, unspecified; I27.20 Pulmonary hypertension, unspecified; I35.0 Nonrheumatic aortic (valve) stenosis; Z87.442 Personal history of urinary calculi; Z79.82 Long term (current) use of aspirin; Z79.84 Long term (current) use of oral hypoglycemic drugs; Z79.899 Other long term (current) drug therapy
CPT/HCPCS: 50590; 52332; 82962; J7120; C2617; J2405

== ENCOUNTER → 2019-03-20 | Outpatient (CLI) | payer OTHER, SELFPAY ==
[2019-03-16 12:15] VITALS: BMI 31.5
--- NOTE | 2019-03-20 09:35 | RAD_ITS ---
STUDY: X-RAY - ABDOMEN/PELVIS REASON FOR EXAM: Male, 64 years old. Kidney stones. TECHNIQUE: Two AP supine views of the abdomen and pelvis. COMPARISON: 2 AP supine films of the abdomen and pelvis March 12, 2019; CT abdomen and pelvis March 07, 2019 FINDINGS: Non-visualized lung bases. There is an unremarkable bowel gas pattern. There is no demonstrated free abdominal air. Double-J ureteral stent now seen extending from the area of the left kidney to the urinary bladder. The mid left ureteral stone as well as a stone seen in the lower pole of left kidney seen on prior imaging are decreased in size. There is stable right nephrolithiasis. The visualized liver, spleen and kidneys are grossly normal in size and morphology. There are stable calcified phleboliths in the pelvis. There are stable degenerative changes of the visualized lumbar spine. RAD/Abdomen Single View IMPRESSION: 1. Decreased size of mid left ureteral stone as well as small stone in the lower pole of left kidney. Double-J ureteral stent now in place. 2. Stable right nephrolithiasis. 3. Nonspecific bowel gas pattern. Electronically Signed: Rony Smallwood MD at 19:04 EDT , Service support ,
== END | disposition home or self-care (01) ==
LOC: RAD.FUTURE 09:31
PROVIDERS: Family Provider Family Medicine; PCP Family Medicine; Referring Provider Urology; Visit Provider Urology
DX: N20.0 Calculus of kidney (principal)
CPT/HCPCS: 74018

== ENCOUNTER 2019-03-30 10:01 | Day surgery (SDC) | payer OTHER, SELFPAY ==
--- NOTE | 2019-03-30 10:10 | RAD_ITS ---
STUDY: X-RAY - ABDOMEN/PELVIS REASON FOR EXAM: Male, 64 years old. Left ureteral stent. History of left renal calculi. TECHNIQUE: Single AP view of the abdomen / pelvis. COMPARISON: Comparison is made with prior study dated March 20, 2019. FINDINGS: Normal visualized lung bases. There is a moderate amount of colonic fecal material. A left-sided double-J stent catheter seen with the proximal tip in the renal pelvis and distal tip in the left side of the bladder. This is unchanged. The previously seen 3 mm calculus in the region of the left lower abdomen overlying the left L5 transverse process is not seen at this time. Stable 6.3 mm calculus in the midportion of the right kidney. Tiny calcifications are also seen in the upper and lower pole calyces of the right kidney. Normal soft tissue structures. There are diffuse degenerative changes of the visualized lumbar spine. RAD/Abdomen Single View IMPRESSION: The previously seen calculus in the mid lower portion of the left ureter is not seen at this time. The remainder of the examination is unchanged. Electronically Signed: Hernandez Parra, at 10:38 EDT , Service support ,
[2019-03-30 10:42] VITALS: BP 116/86; PULSE 73; RESP 16; TEMP 36.7; O2SAT 96; BMI 30.9
[2019-03-30] MEDS: Lactated Ringers 1,000 ML 100 ML IV (10:50)
[2019-03-30 11:16] LABS: Bedside Glucose 182 mg/dL (70-110)
--- NOTE | 2019-03-30 12:34 | PCM.HP.BLA ---
History and Physical Date of Admission: 03/30/19 Patient returns, 64-year-old male status post left ESWL and stent placement on KUB today I don't see any major fragments in the left side looking a broke up really well. He still has a large stone in the right kidney and will plan to treat that stone with shockwave lithotripsy next week. ALLERGIES: Latex MEDICATIONS: Aspir 81 Atorvastatin Calcium Centrum Silver Cetirizine Hcl Furosemide Metformin Hcl Metoprolol Tartrate Potassium Chloride Immunizations: None MULTI-SYSTEM PHYSICAL EXAMINATION: Constitutional: Well-nourished. No physical deformities. Normally developed. Good grooming. Neck: Neck symmetrical, not swollen. Normal tracheal position. Respiratory: No labored breathing, no use of accessory muscles. Cardiovascular: Normal temperature, normal extremity pulses, no swelling, no varicosities. Lymphatic: No enlargement of neck, axillae, groin. Skin: No paleness, no jaundice, no cyanosis. No lesion, no ulcer, no rash. Neurologic / Psychiatric: Oriented to time, oriented to place, oriented to person. No depression, no anxiety, no agitation. Gastrointestinal: No mass, no tenderness, no rigidity, non obese abdomen. Eyes: Normal conjunctivae. Normal eyelids. Ears, Nose, Mouth, and Throat: Left ear no scars, no lesions, no masses. Right ear no scars, no lesions, no masses. Nose no scars, no lesions, no masses. Normal hearing. Normal lips. Musculoskeletal: Normal gait and station of head and neck. PAST DATA REVIEWED: Source Of History: Patient PROCEDURES: Urinalysis - 57048 Dipstick Dipstick Cont'd Specimen: Voided Blood: about 250 Appearance: Clear pH: 5.0 Color: Yellow Protein: 2+ Glucose: Normal Urobilinogen: Neg Bilirubin: Neg Nitrites: Neg Ketones: Neg Leukocyte Esterase: Neg ASSESSMENT: ICD-10 Details 1 : Calculus of ureter - N20.1 Left 2 Calculus of kidney - N20.0 Right 3 NON-: Encounter for surgical aftcr following surgery on the sys - Z48.816 PLAN: Document Letter(s): Created for Patient: Clinical Summary Notes: 64-year-old male status post treatment of the left side with shockwave lithotripsy plan to now treat the right side next week. Will remove the left stent placement right stent and treat the right kidney stone with shockwave lithotripsy he is agreeable with this he understands that the side may not break as well as the left side and that can always require more than one procedure.
--- NOTE | 2019-03-30 12:37 | DCINST_ITS ---
Discharge Diet: Light diet - advance as tolerated Discharge Activity: Return to Normal Activity Call your doctor if your incision/area has: Sudden Increased Bleeding, Increased Pain/ Swelling Call your doctor if you observe: Fever of 101 or Higher Suture Line Care: Avoid Pulling/Pushing, Avoid Pinching/Bending Instructions: Shock Wave Lithotripsy Allergies/Adverse Reactions: Allergies latex Allergy (Verified 03/30/19 10:37) Unknown chocolate flavor Adverse Reaction (Unknown, Verified 03/30/19 10:37) Unknown beans/legumes Adverse Reaction (Unknown, Uncoded 03/30/19 10:37) Unknown dairy products Adverse Reaction (Unknown, Uncoded 03/30/19 10:37) Unknown eggs Adverse Reaction (Unknown, Uncoded 03/30/19 10:37) Unknown Nuts Adverse Reaction (Unknown, Uncoded 03/30/19 10:37) Unknown Medications to take at Discharge aspirin 81 mg tablet,delayed release 81 mg PO QDAY 07/01/17 cetirizine 10 mg capsule 10 mg PO QDAY 07/01/17 metformin 500 mg tablet 1,000 mg PO QDAY tab 07/01/17 multivitamin tablet 1 tab PO QDAY 07/01/17 atorvastatin 10 mg tablet 10 mg PO DAILY #90 tab 12/22/18 furosemide 20 mg tablet 20 mg PO DAILY #90 tab 12/22/18 potassium chloride ER 20 mEq tablet,extended release 10 meq PO QDAY tab 12/22/18 Ondansetron [Zofran Odt] 4 mg PO Q8H PRN PRN #10 tab 03/08/19 Tamsulosin HCl [Flomax] 0.4 mg PO DAILY #7 cap 03/08/19 Metoprolol Tartrate [Lopressor (beta kit)] 25 mg PO BID 03/15/19 Ciprofloxacin [Cipro] 500 mg PO BID #6 tab 03/30/19 Hydrocodone/Acetaminophen [[place] 5-325 Tablet] 1 ea PO Q4H PRN PRN 5 Days #14 tab 03/30/19 The following prescriptions were given: Ciprofloxacin [Cipro] 500 mg PO BID #6 tab Prescription Printed Hydrocodone/Acetaminophen [[place] 5-325 Tablet] 1 ea PO Q4H PRN PRN 5 Days #14 tab PRN Reason: Pain Score 1-03/22 Prescription Printed Primary Care Physician: Mitali Simmons MD [Primary Care Provider] - Test Results: Test results from this visit will be discussed in further detail at your follow- up appointment, if applicable. Please Follow Up With: Blake Orellana MD When: in 2 weeks, please call to make an appointment.
[2019-03-30] MEDS: Cefazolin 2 GM in 0.9% Normal Saline 100 ML IV (13:13)
--- NOTE | 2019-03-30 14:14 | PCM.OPRPT ---
Report of Operation Date of Procedure: 03/30/19 Pre-Operative Diagnosis: Right kidney stone, status post treatment of left kidney stones. Post-Operative Diagnosis: The same Surgery/Procedure Performed:: Cystoscopy and left stent removal, right ESWL. Description of Surgical Findings:: 64-year-old male taken back to the operating room at the smooth induction of anesthesia he was placed supine on the table, we then used fluoroscopy to identify the stent from the prior case was left in place we then went to the right kidney could see a stone in the mid calyx of the right kidney and proceeded with shockwave lithotripsy the stone was treated 3000 shockwaves at a rate of 90/min, up to 7 kV, at the end of the treatment the stone it broken up a little tiny pieces could still see the fragmented pieces appear to be possibly within the calyx, or a diverticular calyx. We monitor the stone the entire treatment with fluoroscopy. The penis and testicles were then prepped and draped in usual sterile fashion went to the bladder with a 21 [place]ic rigid cystourethroscope identified the stent from the left side used a grasper to grab the stent and then extracted stent from the patient's left side from her prior kidney stone treatment.. We then drained the bladder with a red rubber catheter patient anesthetic is currently being reversed plan to see him back in a few weeks with an x-ray no stent was placed on the right side. Type of Anesthesia:: General Drains: none, left stent removed - Admit VTE Documentation VTE Present on Admission: No VTE Mechan Device Prophylaxis: SCD's
[2019-03-30 14:23] VITALS: BP 116/86; BP 133/84; PULSE 62; RESP 16; TEMP 36.2; O2SAT 94
[2019-03-30 14:30] VITALS: BP 116/86; BP 136/85; PULSE 63; RESP 16; O2SAT 96
[2019-03-30 14:35] LABS: Bedside Glucose 117 mg/dL (70-110)
[2019-03-30 14:45] VITALS: BP 116/86; BP 140/85; PULSE 61; RESP 16; O2SAT 96
[2019-03-30 14:54] VITALS: BP 116/86; BP 139/89; PULSE 65; RESP 16; TEMP 36.2; O2SAT 98
[2019-03-30 16:16] VITALS: BP 116/86; BP 146/96; PULSE 66; RESP 16; TEMP 36.1; O2SAT 98
== END 2019-03-30 16:23 | disposition home or self-care (01) ==
LOC: SDC 10:04 → AC 10:04
PROVIDERS: Family Provider Family Medicine; PCP Family Medicine; Referring Provider Urology; Visit Provider Urology
PROC: (CPT 50590; principal; 2019-03-30 12:30)
DX: N20.0 Calculus of kidney (principal); K21.9 Gastro-esophageal reflux disease without esophagitis; E11.9 Type 2 diabetes mellitus without complications; Z87.442 Personal history of urinary calculi; I10 Essential (primary) hypertension; Z79.84 Long term (current) use of oral hypoglycemic drugs; Z79.82 Long term (current) use of aspirin; Z79.899 Other long term (current) drug therapy
CPT/HCPCS: 00873; 50590; 52310; 74018; 82962; J7120; J2405

== ENCOUNTER → 2019-04-19 | Outpatient (CLI) | payer OTHER, SELFPAY ==
[2019-03-30 10:42] VITALS: BMI 30.9
--- NOTE | 2019-04-19 08:08 | RAD_ITS ---
STUDY: X-RAY - ABDOMEN/PELVIS REASON FOR EXAM: Male, 64 years old. Kidney stone follow-up TECHNIQUE: Frontal views of the abdomen COMPARISON: X-ray abdomen March 30, 2019 FINDINGS: There is no bowel obstruction. There is air and stool to the level of the rectum. The visualized osseous structures are within normal limits. RAD/Abdomen Single View IMPRESSION: No bowel obstruction. Electronically Signed: Almas Navarrete, at 16:57 EST Tel , Service support ,
== END | disposition home or self-care (01) ==
LOC: RAD 08:04
PROVIDERS: Family Provider Family Medicine; PCP Family Medicine; Referring Provider Urology; Visit Provider Urology
DX: N20.0 Calculus of kidney (principal)
CPT/HCPCS: 74018

== ENCOUNTER → 2020-06-10 11:16 | Outpatient (CLI) | payer OTHER, SELFPAY ==
[2019-07-05 13:19] VITALS: BMI 31.4
[2020-06-10 15:19] LABS: AST(SGOT) 24 U/L (15-37); Alanine Aminotransfer ALT/SGPT 32 U/L (16-61); Anion Gap 6 (5-15); BUN 16 mg/dL (7-18); BUN/Creat Ratio 11.6 RATIO (10-20); Chloride 105 mmol/L (98-107); Cholesterol 121 mg/dL (200); Creatinine, Serum 1.38 mg/dL (0.70-1.30); EST Glomerular Filtration Rate 55 mL/min (>60); Est Glom Filt Rate - Afr Amer 67 mL/min (>60); Glucose 168 mg/dL (74-106); High Density Lipoprotein 34 mg/dL; Potassium 3.9 mmol/L (3.5-5.1); Sodium Level 137 mmol/L (136-145); Triglycerides 170 mg/dL; Very Low Density Lipoprotein 34 mg/dL (5-40)
[2020-06-10 15:25] LABS: Microalbumin,Random Urine 11.8 mg/L (NO RANGE EST.); Microalbumin:Creatinine Ratio 7.3 mg/g CRE (<30 mg/g CRE)
== END ==
PROVIDERS: PCP Family Medicine; Visit Provider Family Medicine
DX: E11.9 Type 2 diabetes mellitus without complications (principal); I10 Essential (primary) hypertension
CPT/HCPCS: 36415; 80048; 80061; 82043; 82570; 84450; 84460

== ENCOUNTER → 2023-01-13 | Outpatient (CLI) | payer SELFPAY ==
[2023-01-13 18:17] LABS: Absolute Lymphocyte Count 1.38 X10^3/uL (0.83-4.51); Absolute Neutrophil Count 6.2 X10^3/uL (2.0-7.7); Basophil# 0.06 X10^3/uL; Basophil% 0.7 % (0-1); Eosinophils% 2.3 % (0-5); Hematocrit 45.8 % (40-54); Hemoglobin 15.7 g/dL (13.0-16.5); Lymphocyte # 1.38 X10^3/ul (0.83-4.51); Lymphocyte % 16.1 % (19-41); Mean Corp Hgb Conc 34.3 g/dL (32-36); Mean Corpuscular Hgb 30.6 pg (27.0-32.0); Mean Corpuscular Volume 89.3 fL (80-94); Mean Platelet Vol. 10.3 fl (6.2-12.0); Monocyte# 0.71 X10^3/uL; Monocyte% 8.3 % (0-10); NRBC Flagged by Analyzer 0 % (0-5); Neutrophil # 6.22 X10^3/uL (2.7-7.7); Neutrophil % 72.4 % (47-70); Platelet Count 220 K/mm3 (150-450); RBC Distribution Width CV 12.4 % (11.6-14.6); RBC Distribution Width SD 40.6 fl (35.1-43.9); Red Blood Count 5.13 M/mm3 (4.6-6.2); White Blood Count 8.6 K/mm3 (4.4-11.0)
[2023-01-13 18:50] LABS: AST(SGOT) 18 U/L (15-37); Alanine Aminotransfer ALT/SGPT 28 U/L (16-61); Albumin, Serum 3.8 g/dL (3.2-5.0); Alkaline Phosphatase 97 U/L (45-117); Anion Gap 6 (5-15); BUN 19 mg/dL (7-18); BUN/Creat Ratio 13.2 RATIO (10-20); Chloride 104 mmol/L (98-107); Cholesterol 163 mg/dL (200); Creatinine, Serum 1.44 mg/dL (0.70-1.30); EST Glomerular Filtration Rate 52 mL/min (>60); Est Glom Filt Rate - Afr Amer 63 mL/min (>60); Glucose 205 mg/dL (74-106); High Density Lipoprotein 37 mg/dL; Potassium 3.9 mmol/L (3.5-5.1); Protein, Total 7.8 g/dL (6.4-8.2); Sodium Level 137 mmol/L (136-145); Triglycerides 190 mg/dL; Very Low Density Lipoprotein 38 mg/dL (5-40)
== END | disposition home or self-care (01) ==
LOC: MFPLAB 14:42
PROVIDERS: PCP Family Medicine; Visit Provider Family Medicine
DX: E11.8 Type 2 diabetes mellitus with unspecified complications (principal)
CPT/HCPCS: 36415; 80053; 80061; 83036; 85025

== ENCOUNTER → 2023-01-17 | Outpatient (CLI) | payer SELFPAY ==
--- NOTE | 2023-01-17 17:55 | MRI_ITS ---
EXAM: MR brain with and without contrast. 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 LIMITATIONS: None. BRAIN: Moderate white matter changes are nonspecific, but often secondary to chronic microvascular ischemia. 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 No diffusion abnormalities. No abnormal enhancement. VENTRICLES: No hydrocephalus. EXTRA-AXIAL SPACES: No hemorrhages, fluid collections, or masses. CALVARIUM/SKULL BASE: Normal. FACE/SINUSES: Mucous retention cyst or polyp in the right maxillary sinus. SOFT TISSUES: Normal. OTHER: None. CONCLUSION: No significant abnormality. Electronically Signed: Srinivasan Pfeiffer MD at 3:25 EDT , MRI/Brain W/WO Contrast IMPRESSION: undefined
== END | disposition home or self-care (01) ==
PROVIDERS: PCP Family Medicine; Referring Provider Family Medicine; Visit Provider Family Medicine
DX: H49.22 Sixth [abducent] nerve palsy, left eye (principal)
CPT/HCPCS: 70553; A9575

== ENCOUNTER 2023-12-20 16:03 | Emergency (ER) | payer MEDICARE, SELFPAY ==
[2023-12-20 16:04] VITALS: BP 151/92; PULSE 88; RESP 16; TEMP 36.6; O2SAT 98
--- NOTE | 2023-12-20 17:13 | EKG12_ITS ---
Test Reason : Blood Pressure : / mmHG Vent. Rate : 071 BPM Atrial Rate : 071 BPM P-R Int : 162 ms QRS Dur : 100 ms QT Int : 372 ms P-R-T Axes : 026 -08 043 degrees QTc Int : 404 ms Normal sinus rhythm Normal ECG Confirmed by Steven Flowers ([id number]), sound editor LYDIA LAL ([id number]) on 12/21/2023 9:50:55 AM Referred By: Confirmed By:Steven Flowers
--- NOTE | 2023-12-20 17:15 | EX.ED.DYSGE1 ---
HPI History of Present Illness Chief Complaint: Weakness Informant: patient Onset/Context/Timing Onset: Days Context: Gradual Onset Timing: Continuous Maximum Severity: Mild Narrative Narrative: 68-year-old male history of a thoracic aneurysm repair and diabetes. Said since Tuesday he noticed he just felt weak primarily in his legs. Primarily when he steps over things. Denies any fall or trauma. Denies any recent illness. Denies any nausea, vomiting or diarrhea. Denies any fever or chills. Denies any chest or abdominal pain or shortness of breath. States he is urinating normally and having normal bowel movements. Prior similar symptoms: No Recent Illness/Hospitalization: No [facility] Medical History (Updated 12/20/23 @ 19:[address] Dustin Cordero MD) Thoracic ascending aortic aneurysm Hypokalemia Hyponatremia Abnormal stress test Hyperlipidemia Nonrheumatic aortic (valve) stenosis Cardiac murmur Type 2 diabetes mellitus Home Medications ?Medication ?Instructions ?Recorded ?Last Taken ?Type aspirin 81 mg tablet,delayed 81 mg PO QDAY 07/01/17 03/23/19 History release cetirizine 10 mg capsule 10 mg PO QDAY 07/01/17 Unknown History metformin 500 mg tablet 1,000 mg PO QDAY 07/01/17 07/31/17 History multivitamin 1 tab PO QDAY 07/01/17 Unknown History potassium chloride 20 mEq 10 meq PO QDAY 12/22/18 Unknown History tablet,extended release ondansetron 4 mg disintegrating 4 mg PO Q8H PRN PRN Nausea #10 tabs 03/08/19 Unknown Rx tablet lisinopril 20 mg tablet 20 mg PO DAILY 07/05/19 Unknown History tamsulosin 0.4 mg capsule 0.4 mg PO DAILY PRN 07/05/19 Unknown History atorvastatin 10 mg tablet 10 mg PO DAILY #90 tabs 12/26/19 Unknown Rx furosemide 20 mg tablet 20 mg PO DAILY #90 tabs 12/26/19 Unknown Rx metoprolol tartrate 25 mg tablet 25 mg PO BID #180 tabs 09/29/20 Unknown Rx Allergy/AdvReac Type Severity Reaction Status Date / Time latex Allergy Unknown Verified 12/20/23 16:06 chocolate flavor AdvReac Unknown Unknown Verified 12/20/23 16:06 egg AdvReac NEEDS Verified 12/20/23 16:06 FOLLOW-UP legumes AdvReac NEEDS Verified 12/20/23 16:06 FOLLOW-UP milk (dairy) AdvReac NEEDS Verified 12/20/23 16:06 FOLLOW-UP nut - unspecified (nuts) AdvReac NEEDS Verified 12/20/23 16:06 FOLLOW-UP Family History Mother Diabetes Grandfather Myocardial infarction Grandmother Heart disease Father Cardiac pacemaker in situ Surgical History S/P ascending aortic replacement (~11/01/17) S/P aortic valve replacement with tissue (~11/01/17) History of cholecystectomy Social History Smoking Status: Never smoker alcohol intake: current details: occasional substance use type: does not use ROS ROS ED ROS Narrative Denies recent illness. Review of Systems ROS Unobtainable: Denies due to encephalopathy Constitutional Constitutional ED: Denies chills or fever(s) Eyes Eyes: Denies blurry vision ENT ENT ED: Denies ear pain Cardiovascular Cardiovascular: Denies chest pain Respiratory/Chest Respiratory/Chest: Denies cough or dyspnea Gastrointestinal Gastrointestinal: Denies abdominal pain, diarrhea, melena, nausea or vomiting Genitourinary Genitourinary ED: Denies dysuria or hematuria Musculoskeletal Musculoskeletal: Denies arthralgias or back pain Integumentary Denies abscess Neurologic Neurologic: Denies headache(s) or paresthesias Psychiatric Psychiatric: Denies anxiety or depression Endocrine Endocrinology: Denies cold intolerance Hematologic/Lymphatic Hematologic/Lymphatic: Reports none Allergic/Immunologic Allergic/Immunologic ED: Denies mouth swelling, tongue swelling or urticaria EXAM Physical Exam Narrative Exam Narrative: Well-appearing 68-year-old male. Vital signs stable afebrile. Pulse ox 90% on room air no hypoxia. H EENT exam unremarkable. Neck nontender no JVD. Lungs clear to auscultation bilaterally. Heart regular rhythm no murmur rate about 88. Chest wall and ribs nontender. Abdomen soft nontender. Moving all 4 extremities. 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 Normal dorsi plantarflexion. He can lift either leg off the bed. Normal sensation. Normal range of motion. Back nontender. Neurologically is awake alert no focal motor or sensory deficits. He has a very benign exam. Const Vital Signs: 12/20/23 16:04 12/20/23 17:45 12/20/23 18:14 Temperature 98 F Temperature Source Temporal Pulse Rate 88 67 Respiratory Rate 16 19 H Respiratory Pattern Normal Blood Pressure 151/92 H 155/84 H Blood Pressure Mean 111 107 Pulse Ox 98 97 Oxygen Delivery Method Room Air Room Air Positive well nourished and well developed; Negative for cachectic, contractures or unkempt General Appearance ED: well developed and NAD; Negative for unkempt, cachectic, contractures, cyanotic, diaphoretic or pallor Nutritional Appearance: Negative for cachectic HEENT Reports moist mucous membranes; Denies dry mucous membranes Negative for trauma or tenderness Mouth ED: No dry mucous membranes Mouth: No dry mucous membranes Eyes PERRL and EOMs intact bilaterally General Eye ED: Negative for pale conjunctiva or scleral icterus Neck no lymphadenopathy, supple and no JVD General: Negative for tenderness or other Lymph Lymphatic: Negative for other Chest Wall inspection of chest normal and palpation of chest normal Chest: Negative for other Resp normal respiratory effort and clear to auscultation bilaterally Effort and Inspection: Negative for retractions Auscultation: Negative for rales, rhonchi, wheezes or diminished lung sounds Cardio regular rate, regular rhythm, S1 normal heart sound, S2 normal heart sound and no murmurs Palpation: Negative for palpable S3 or palpable S4 Rate: Negative for bradycardia or tachycardic Rhythm: Negative for abnormal rhythm GI normal to inspection, nondistended, normoactive bowel sounds, non-tender and non-distended Inspection: Negative for abdominal distention Auscultation: normoactive bowel sounds Palpation: soft; Negative for tender or guarding Back/Spine no CVA tenderness General Back: Negative for CVA tenderness Cervical Spine: Negative for cervical spine tenderness Thoracic Spine / Upper Back: Negative for thoracic spinal tenderness or paraspinal muscle tenderness Lumbar Spine / Lower Back: Negative for lumbar spinal tenderness Extremity normal to inspection General Extremety ED: Negative for edema or tenderness General Extremity: Negative for edema Neuro oriented x3, CN's II-XII intact bilaterally and no sensory deficits noted Sensorium / Orientation: alert; Negative for orientation impaired, lethargic or stuporous Motor Exam: strength 5/5 throughout; Negative for general weakness or strength abnormal Psych mental status grossly normal Appearance: Negative for unkempt Attitude: No agitated Mood & Affect: Negative for depressed, anxious or tearful Skin no rashes or lesions noted and no wounds General Skin Exam: Negative for jaundice or pallor Lesions: No lesion noted Rashes: No rashes noted Trauma: Negative for abrasion Wounds: Negative for wounds noted MDM MDM MDM Narrative Medical decision making narrative: 68-year-old male is felt weak since Tuesday. Denies any other complaints. Says his legs feel shaky. Denies any fall or trauma or recent illness. Screening labs and EKG will be obtained. His exam is benign. Repeat exam unchanged. Patient has good strength in his lower extremities. No specific cause for his overall weakness. Outpatient follow-up. We discussed all his test results and he and his are comfortable with him being discharged home. History & Record Review Discussion w/independent historian: Patient Additional record(s) reviewed:: Prior inpatient record, Prior outpatient record, Prior ED visit and Prior labs Lab Data Attestation: I reviewed the patient's lab results. Lab results narrative: CBC normal. White count of 9. H&H 16 and 46. Platelets 252. Electrolytes show gap 6. BUN and creatinine 23 and 1.43. Glucose 172. Liver enzymes normal. Urinalysis negative. No nitrates. No white or red cells. No bacteria. Labs: Laboratory Results - last 24 hr 12/20/23 12/20/23 16:40 17:49 WBC 9.8 RBC 5.47 Hgb 16.3 Hct 46.5 MCV 85.0 MCH 29.8 MCHC 35.1 RDW Std Deviation 37.6 RDW Coeff of Susana 12.3 Plt Count 252 MPV 9.9 Immature Gran % (Auto) 0.300 Neut % (Auto) 71.2 H Lymph % (Auto) 16.5 L [place] % (Auto) 9.2 Eos % (Auto) 2.0 Baso % (Auto) 0.8 Absolute Neuts (auto) 6.9 Absolute Lymphs (auto) 1.61 Nucleated RBC % 0 Sodium 137 Potassium 3.7 Chloride 105 Carbon Dioxide 26.0 Anion Gap 6 BUN 23 H Creatinine 1.43 H Est GFR (MDRD) Af Amer 64 Est GFR (MDRD) Non-Af 52 L BUN/Creatinine Ratio 16.1 Glucose 172 H Calcium 9.9 Total Bilirubin 1.40 H AST 20 ALT 25 Alkaline Phosphatase 107 Total Protein 7.7 Albumin 4.1 Globulin 3.6 Albumin/Globulin Ratio 1.1 Urine Color Yellow Urine Clarity Sl. Cloudy Urine pH 6.0 Ur Specific Cassel 1.020 Urine Protein 30 H Urine Glucose (UA) Normal Urine Ketones 5 H Urine Occult Blood Negative Urine Nitrite Negative Urine Bilirubin Negative Urine Urobilinogen 1 H Ur Leukocyte Esterase 25 H Urine RBC 0 SEEN Urine WBC 0-5 SEEN Ur Squamous Epith Cells 0-5 SEEN Amorphous Sediment 1+ URATE Urine Bacteria 0 SEEN Urine Mucus 0 SEEN Discharge Plan Triage Chief Complaint: Weakness ED Provider: Dustin Cordero Dx/Rx/DC Orders Clinical Impression: Generalized weakness, Type 2 diabetes mellitus Instructions: ED Weakness (Uncertain Cause) Prescriptions: No Action metformin 500 mg tablet 1,000 mg PO QDAY cetirizine 10 mg capsule 10 mg PO QDAY multivitamin tablet 1 tab PO QDAY aspirin 81 mg tablet,delayed release (DR/EC) 81 mg PO QDAY lisinopril 20 mg tablet 20 mg PO DAILY tamsulosin 0.4 mg capsule 0.4 mg PO DAILY PRN ondansetron 4 MG tablet 4 mg PO Q8H PRN PRN (Reason: Nausea) Qty: 10 0RF potassium chloride 20 mEq tablet extended release 10 meq PO QDAY atorvastatin 10 mg tablet 10 mg PO DAILY Qty: 90 3RF furosemide 20 mg tablet 20 mg PO DAILY Qty: 90 3RF metoprolol tartrate 25 mg tablet 25 mg PO BID Qty: 180 3RF Primary Care Provider: Mitali Simmons Referrals: Mitali Simmons MD [Primary Care Provider] - 3-5 Days if not improving Activity Restrictions/Additional Instructions: Plenty of fluids and rest. Follow-up with your doctor if you are not improving. Your test today were unremarkable. Print Language: [place] Disposition Disposition: Home, Self Care
[2023-12-20 17:29] LABS: Absolute Lymphocyte Count 1.61 X10^3/uL (0.83-4.51); Absolute Neutrophil Count 6.9 X10^3/uL (2.0-7.7); Basophil# 0.08 X10^3/uL; Basophil% 0.8 % (0-1); Hematocrit 46.5 % (40-54); Hemoglobin 16.3 g/dL (13.0-16.5); Lymphocyte # 1.61 X10^3/ul (0.83-4.51); Lymphocyte % 16.5 % (19-41); Mean Corp Hgb Conc 35.1 g/dL (32-36); Mean Corpuscular Hgb 29.8 pg (27.0-32.0); Mean Platelet Vol. 9.9 fl (6.2-12.0); Monocyte% 9.2 % (0-10); NRBC Flagged by Analyzer 0 % (0-5); Neutrophil # 6.94 X10^3/uL (2.7-7.7); Neutrophil % 71.2 % (47-70); Platelet Count 252 K/mm3 (150-450); RBC Distribution Width CV 12.3 % (11.6-14.6); RBC Distribution Width SD 37.6 fl (35.1-43.9); Red Blood Count 5.47 M/mm3 (4.6-6.2); White Blood Count 9.8 K/mm3 (4.4-11.0)
[2023-12-20 17:44] LABS: ALB/GLOB Ratio 1.1 RATIO (0.9-2.4); AST(SGOT) 20 U/L (15-37); Alanine Aminotransfer ALT/SGPT 25 U/L (16-61); Albumin, Serum 4.1 g/dL (3.2-5.0); Alkaline Phosphatase 107 U/L (45-117); Anion Gap 6 (5-15); BUN 23 mg/dL (7-18); BUN/Creat Ratio 16.1 RATIO (10-20); Calcium,Total 9.9 mg/dL (8.5-10.1); Chloride 105 mmol/L (98-107); Creatinine, Serum 1.43 mg/dL (0.70-1.30); EST Glomerular Filtration Rate 52 mL/min (>60); Est Glom Filt Rate - Afr Amer 64 mL/min (>60); Globulin 3.6 g/dL (2.2-4.2); Glucose 172 mg/dL (74-106); Potassium 3.7 mmol/L (3.5-5.1); Protein, Total 7.7 g/dL (6.4-8.2); Sodium Level 137 mmol/L (136-145)
[2023-12-20] MEDS: 0.9% Normal Saline (1000mL) 1,000 ML 999 ML IV (17:45)
[2023-12-20 17:56] LABS: Bacteria 0 SEEN /hpf (None Seen); Mucous, Urine 0 SEEN /hpf (<or=2+); Red Blood Cells-Urine 0 SEEN /hpf (0-5)
[2023-12-20 17:58] LABS: Color, Urine Yellow (Yellow); Glucose, Dipstick Normal (Normal); Ketone-Dipstick 5 mg/dl (Negative); Leukocyte Esterase-Dipstick 25 /ul (Negative); Nitrite-Dipstick Negative (Negative); Occult Blood-Urine Negative /ul (Negative); Protein-Dipstick 30 mg/dl (Negative); Urine Bilirubin Dipstick Negative (Negative); Urine Clarity Sl. Cloudy (Clear); Urine Urobilinogen 1 mg/dl (Normal)
[2023-12-20 18:08] LABS: Squamous Epithelial Cells - UA 0-5 SEEN /hpf (0-5); White Blood Cells 0-5 SEEN /hpf (0-5)
[2023-12-20 18:09] LABS: Amorphous Sediment 1+ URATE
[2023-12-20 18:14] VITALS: BP 155/84; PULSE 67; RESP 19; O2SAT 97
[2023-12-20 20:04] VITALS: BP 159/91; PULSE 69; RESP 18; TEMP 36.7; O2SAT 97
== END 2023-12-20 20:06 | disposition home or self-care (01) ==
PROVIDERS: Emergency Provider Emergency Medicine; PCP Family Medicine; Visit Provider Emergency Medicine
DX: R53.1 Weakness (principal); E11.9 Type 2 diabetes mellitus without complications; E78.5 Hyperlipidemia, unspecified; Z98.890 Other specified postprocedural states
CPT/HCPCS: 80053; 81001; 85025; 93005; 96360; 96361; 99284; J7030; A4216

== ENCOUNTER → 2024-04-30 | Outpatient (CLI) | payer MEDICARE, SELFPAY ==
[2024-04-30 18:24] LABS: AST(SGOT) 20 U/L (15-37); Alanine Aminotransfer ALT/SGPT 30 U/L (16-61); Albumin, Serum 4.3 g/dL (3.2-5.0); Alkaline Phosphatase 107 U/L (45-117); Anion Gap 8 (5-15); BUN 18 mg/dL (7-18); Bilirubin, Direct 0.33 mg/dL (0.00-0.30); Calcium,Total 10.1 mg/dL (8.5-10.1); Chloride 106 mmol/L (98-107); Cholesterol 173 mg/dL (200); EST Glomerular Filtration Rate 50 mL/min (>60); Est Glom Filt Rate - Afr Amer 60 mL/min (>60); Globulin 3.5 g/dL (2.2-4.2); Glucose 186 mg/dL (74-106); High Density Lipoprotein 38 mg/dL; Potassium 4.1 mmol/L (3.5-5.1); Protein, Total 7.8 g/dL (6.4-8.2); Sodium Level 138 mmol/L (136-145); Triglycerides 163 mg/dL; Very Low Density Lipoprotein 33 mg/dL (5-40)
== END | disposition home or self-care (01) ==
LOC: MFPLAB 14:15
PROVIDERS: PCP Family Medicine; Visit Provider Family Medicine
DX: E11.69 Type 2 diabetes mellitus with other specified complication (principal); E11.59 Type 2 diabetes mellitus with other circulatory complications; Z12.5 Encounter for screening for malignant neoplasm of prostate
CPT/HCPCS: 36415; 80048; 80061; 80076; 84153; 84443; G0103